=== PATIENT | female | born 2000 | race African-American/Black ===

== ENCOUNTER 2023-08-20 15:56 | Emergency (ER) | payer SELFPAY ==
[~2023-08-20] VITALS: Ht 180.3 cm; Wt 59.0 kg
[2023-08-20 16:05] VITALS: BP 124/62; PULSE 86; RESP 12; TEMP 97.5; O2SAT 99
[2023-08-20] MEDS ORDERED: PREN-176 MT (16:24)
== END 2023-08-20 16:27 | disposition home or self-care (01) ==
LOC: ER 15:56
DX: Z32.01 Encounter for pregnancy test, result positive (principal); J45.909 Unspecified asthma, uncomplicated; F41.9 Anxiety disorder, unspecified
CPT/HCPCS: 81025; 99282

== ENCOUNTER 2023-08-24 22:36 | Emergency (ER) | payer MEDICAID ==
[~2023-08-24] VITALS: Ht 180.3 cm; Wt 69.0 kg
[~2023-08-24 22:36] MED LIST: PREN-176 MT
[2023-08-25 00:09] VITALS: O2SAT 100
[2023-08-25 01:53] VITALS: BP 110/69; PULSE 74; RESP 18; TEMP 98
== END 2023-08-25 01:57 | disposition home or self-care (01) ==
LOC: ER 22:36
DX: O26.891 Other specified pregnancy related conditions, first trimester (principal); Z3A.01 Less than 8 weeks gestation of pregnancy
CPT/HCPCS: 36415; 76801; 84702; 99284